=== PATIENT | male | born 1965 | race Caucasian/White ===

== ENCOUNTER 2018-07-13 07:06 | Emergency (ER) | payer OTHER ==
[2018-07-13] MEDS ORDERED: Sodium Chloride 0.9% 1,000 ML IV ONE (07:31)
[2018-07-13] MEDS ORDERED: diphenhydrAMINE 50 MG/ML SDV IVPUSH ONE (07:31)
[2018-07-13] MEDS ORDERED: LORazepam 2 MG/ML SDV IVPUSH ONE (07:31)
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
[2018-07-13 08:34] LABS: CHLORIDE,CL 102 mmol/L (98-107); SODIUM,NA 136 mmol/L (136-148)
--- NOTE | 2018-07-13 08:47 | CT ---
EXAMINATION: Non contrast CT head. Coronal and sagittal reformats. HISTORY: Pain FINDINGS: No evidence of intra or extra axial hemorrhage, mass, midline shift, hydrocephalus or edema. No hypoattenuation changes in the major vascular territories to suggest acute infarct. No abnormal intracranial calcifications are detected. No evidence of substantial vascular calcifications. Paranasal sinuses and mastoid air cells are well aerated without substantial findings. Pituitary fossa appears unremarkable. Orbits and globes are symmetric. Calvarium is intact. No evidence of skull fracture. IMPRESSION: No acute intracranial findings.
[2018-07-13] MEDS ORDERED: SUMAtriptan 50 MG Tab PO ONE (10:00)
[2018-07-13 10:42] VITALS: BP 136/80
== END 2018-07-13 10:38 | disposition home or self-care (01) ==
LOC: MW.ED 07:06
DX: R51 Headache (principal); Z88.6 Allergy status to analgesic agent
CPT/HCPCS: 36415; 70450; 80053; 81003; 82962; 85025; 96361; 96374; 96375; 99284; A9270; J1200; J2060; J7040; 99283

== ENCOUNTER 2018-07-13 17:58 | Emergency (ER) | payer OTHER ==
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
[2018-07-13 18:55] VITALS: BP 102/65
--- NOTE | 2018-07-13 19:05 | CR ---
INDICATION: Shortness of breath TECHNIQUE: Chest 1 view. COMPARISON: None available FINDINGS: The heart appears mildly enlarged, however this may be due to AP technique. The pulmonary vasculature is within normal limits. The lungs are clear. There is a probable moderate hiatal hernia. The visualized osseous structures are grossly unremarkable. IMPRESSION: 1. The heart appears mildly enlarged, however this may be due to AP technique. 2. Moderate hiatal hernia. Dictated by Marcella Monterroso MD @ 07/13/2018 7:04:40 PM Dictated by: Marcella Monterroso MD @ 07/13/2018 19:04:59 (Electronically Signed)
--- NOTE | 2018-07-13 19:31 | CT ---
INDICATION: Fall, intoxication TECHNIQUE: CT head without contrast. COMPARISON: CT head dated earlier same day at 8:23 a.m. FINDINGS: The ventricles are in proportion to the cortical sulci and consistent with patient`s stated age. Negative for acute intracranial hemorrhage, extra-axial fluid collection or midline shift. The singh-white matter junction is distinct. The basal cisterns are intact. There is minimal atherosclerotic calcification of the cavernous portions of the internal carotid arteries bilaterally. There is mild mucosal thickening of the left maxillary sinus. The remaining visualized paranasal sinuses are clear. The mastoid air cells are well pneumatized. The bony calvarium is intact. IMPRESSION: Stable noncontrast CT examination of the head without acute intracranial abnormality. Dictated by Marcella Monterroso MD @ 07/13/2018 7:30:44 PM Please note that all CT scans at this facility use dose modulation, iterative reconstruction, and/or weight-based dosing when appropriate to reduce radiation dose to as low as reasonably achievable. Dictated by: Marcella Monterroso MD @ 07/13/2018 19:31:10 (Electronically Signed)
== END 2018-07-13 19:48 | disposition home or self-care (01) ==
LOC: MW.ED 17:58
DX: Z04.3 Encounter for examination and observation following other accident (principal); Z88.6 Allergy status to analgesic agent; Z88.5 Allergy status to narcotic agent
CPT/HCPCS: 70450; 70450-26; 71045; 71045-26; 93005; 99284-25

== ENCOUNTER 2024-10-01 14:36 | Emergency (ER) | payer SELFPAY ==
[2024-10-01] MEDS ORDERED: Sodium Chloride 0.9% 2.5 ML Syringe FLUSH PRN (14:58)
[2024-10-01] MEDS ORDERED: Sodium Chloride 0.9% 10 ML Syringe FLUSH PRN (14:58)
[2024-10-01] MEDS ORDERED: Nitroglycerin 0.4 MG Tab.SL SL PRN (15:00)
[2024-10-01 15:06] LABS: BASOPHILS ABSOLUTE AUTO 0.04 K/uL (0.00-0.20); BASOPHILS PERCENT AUTO 0.3 % (0.0-1.0); EOSINOPHILS ABSOLUTE AUTO 0.03 K/uL (0.00-0.45); EOSINOPHILS PERCENT AUTO 0.3 % (0.0-6.0); IMMATURE GRAN ABSOLUTE AUTO 0.04 K/uL (0.00-0.05); IMMATURE GRAN PERCENT AUTO 0.3 % (0.0-0.4); LYMPHOCYTES ABSOLUTE AUTO 0.58 K/uL (1.00-4.80); LYMPHOCYTES PERCENT AUTO 4.9 % (24.0-44.0); MEAN PLATELET VOLUME 9.3 fL (9.4-12.4); MONOCYTES ABSOLUTE AUTO 1.42 K/uL (0.00-0.80); MONOCYTES PERCENT AUTO 12.1 % (0.0-8.0); NEUTROPHILS ABSOLUTE AUTO 9.63 K/uL (1.80-7.70); NEUTROPHILS PERCENT AUTO 82.1 % (41.0-71.0); NRBC ABSOLUTE 0.00 K/uL (0.00-0.02); NRBC PERCENT 0.0 /100WBC (0.0-0.2); PLATELET COUNT,PLT 463 K/uL (150-400); RED BLOOD CELL COUNT 4.62 M/uL (4.52-5.90); WHITE BLOOD CELL COUNT,WBC 11.74 K/uL (3.9-11.3)
[2024-10-01 15:30] LABS: A/G RATIO 0.7 (0.9-1.6); ALANINE AMINOTRANSFERASE,ALT 30.0 IU/L (14-63); ASPARTATE AMNIOTRANSFERASE,AST 16.0 IU/L (15-37); BILIRUBIN TOTAL 0.6 mg/dL (0.2-1.0); BLOOD UREA NITROGEN,BUN 18.0 mg/dL (7.0-18.0); CARBON DIOXIDE,CO2 20.7 mmol/L (21.0-32.0); CHLORIDE,CL 102.0 mmol/L (98-107); CREATINE KINASE,CK 63.0 U/L (26-308); CREATININE 1.3 mg/dL (0.8-1.3); EST CRCL DRUG DOSING (CG) 49.24 mL/min; GLUCOSE RANDOM 174.0 mg/dL (74-106); POTASSIUM,K 3.8 mmol/L (3.5-5.1); PROTEIN TOTAL,TP 7.6 g/dL (6.4-8.2); SODIUM,NA 137.0 mmol/L (136-148)
[2024-10-01 15:31] LABS: ESTIMATED GFR 63.0 mL/min (>60)
[2024-10-01] MEDS: Iopamidol 755 MG/ML 500 ML Multipack Bottle IVPUSH STA (15:39)
[2024-10-01 15:53] VITALS: BP 127/82; PULSE 91
== END 2024-10-01 18:59 ==
LOC: MW.ED 14:36
DX: I47.10 Supraventricular tachycardia, unspecified (principal); I31.39 Other pericardial effusion (noninflammatory); C34.90 Malignant neoplasm of unspecified part of unspecified bronchus or lung; Z88.8 Allergy status to other drugs, medicaments and biological substances
CPT/HCPCS: 36415; 71045; 71275; 80053; 82550; 83735; 84484; 85025; 85379; 93005; 99285; Q9967